=== PATIENT | male | born 1995 | race African-American/Black ===

== ENCOUNTER 2017-10-21 08:55 | Emergency (ER) | payer BC, OTHER ==
[2017-10-21 09:04] VITALS: BP 111/66
--- NOTE | 2017-10-21 09:23 | UC ---
General HPI - HPI Summary HPI Summary: Patient presents with complaints of dental pain and facial swelling on left upper side. He is able to eat, drink and handle his own secretions. He denies any difficulty breathing. - History of Current Complaint Chief Complaint: UCDentalProblem Stated Complaint: DENTAL PAIN Time Seen by Provider: 10/21/17 09:18 Hx Obtained From: Patient Onset/Duration: Gradual Onset, Lasting Days Timing: Constant Onset Severity: Moderate Current Severity: Severe Pain Intensity: 5 Associated Signs & Symptoms: Positive: Other Similar Episode/Dx as: dental abscess - Allergy/Home Medications Allergies/Adverse Reactions: Allergies Allergy/AdvReac Type Severity Reaction Status Date / Time No Known Allergies Allergy Verified 10/21/17 09:04 Home Medications: Home Medications Ibuprofen [Ibuprofen 200] 800 mg PO Q8HR PRN 10/21/17 [History Confirmed ] PMH/Surg Hx/FS Hx/Imm Hx Previously Healthy: Yes GI/ History: Other - Surgical History Surgical History: None - Family History Known Family History: Positive: None - Social History Occupation: Employed Full-time Lives: Alone Alcohol Use: Occasionally Substance Use Type: Marijuana Substance Use Comment - Amount & Last Used: daily Smoking Status (MU): Light Every Day Tobacco Smoker Type: Cigarettes Amount Used/How Often: 1/2PPD Review of Systems Constitutional: Negative Skin: Negative Eyes: Negative ENT: Negative, Other Respiratory: Negative Cardiovascular: Negative Gastrointestinal: Negative Genitourinary: Negative Motor: Negative Is Patient Immunocompromised?: No All Other Systems Reviewed And Are Negative: Yes Physical Exam Triage Information Reviewed: Yes Appearance: Well-Appearing Vital Signs: Initial Vital Signs Temp 98.8 F 10/21/17 08:57 Pulse 78 10/21/17 08:57 Resp 14 10/21/17 08:57 BP 111/66 10/21/17 08:57 Pulse Ox 97 10/21/17 08:57 Eye Exam: Normal ENT Exam: Normal Dental Exam: Normal Neck exam: Normal Neck: Positive: 1 Respiratory Exam: Normal Cardiovascular Exam: Normal Abdominal Exam: Normal Musculoskeletal Exam: Normal Neurological Exam: Normal Psychological Exam: Normal Skin Exam: Normal Course/Dx - Course Course Of Treatment: Patient presents with dental abscess. He was RX Amoxicillin 500 mg by mouth three times daily for 10 days. He has an appointment scheduled for Saturday of this week. Pain addressed with Ibuprofen. - Differential Dx - Multi-Symptom Differential Diagnoses: Other - dental abscess toothache Provider Diagnoses: dental abscess. toothache Discharge - Discharge Plan Condition: Stable Disposition: HOME Prescriptions: Amoxicillin PO (*) [Amoxicillin 500 MG CAP*] 500 mg PO TID #30 cap Patient Education Materials: Dental Abscess (ED) Referrals: Luis Arguello MD [Primary Care Provider] - Additional Instructions: Patient to follow up with his dentist as scheduled on Saturday.
--- NOTE | 2017-10-21 09:52 | UC ---
Dental HPI - HPI Summary HPI Summary: Patient presents with an unremarkable past medical history. He presents with two day onset complaints of dental pain of the left upper area, and facial swelling that developed yesterday. He states he has some pain in the area of the swelling. He reports he is able to eat, drink, swallow, without any difficulty. He states he has a bad tooth and does have a dental appointment scheduled for Saturday of this week. - History of Current Complaint Chief Complaint: UCDentalProblem Stated Complaint: DENTAL PAIN Time Seen by Provider: 10/21/17 09:18 Hx Obtained From: Patient Onset/Duration: Gradual Onset, Lasting Days Severity: Moderate Pain Intensity: 5 Aggravating Factor(s): Heat, Cold Alleviating Factor(s): OTC Meds Related History: Swelling - Allergies/Home Medications Allergies/Adverse Reactions: Allergies Allergy/AdvReac Type Severity Reaction Status Date / Time No Known Allergies Allergy Verified 10/21/17 09:04 Home Medications: Home Medications Ibuprofen [Ibuprofen 200] 800 mg PO Q8HR PRN 10/21/17 [History Confirmed ] PMH/Surg Hx/FS Hx/Imm Hx Previously Healthy: Yes - Surgical History Surgical History: None - Family History Known Family History: Positive: None - Social History Occupation: Employed Full-time Lives: Alone Alcohol Use: Occasionally Substance Use Type: Marijuana Substance Use Comment - Amount & Last Used: daily Smoking Status (MU): Light Every Day Tobacco Smoker Type: Cigarettes Amount Used/How Often: 1/2PPD Review of Systems Constitutional: Negative Skin: Negative Eyes: Negative ENT: Negative, Other - left upper dental cavity, with pain and facial swelling. Respiratory: Negative Cardiovascular: Negative Gastrointestinal: Negative Genitourinary: Negative Motor: Negative Neurovascular: Negative Musculoskeletal: Negative Neurological: Negative Psychological: Negative Is Patient Immunocompromised?: No All Other Systems Reviewed And Are Negative: Yes Physical Exam Triage Information Reviewed: Yes Appearance: Well-Appearing Vital Signs: Initial Vital Signs Temp 98.8 F 10/21/17 08:57 Pulse 78 10/21/17 08:57 Resp 14 10/21/17 08:57 BP 111/66 10/21/17 08:57 Pulse Ox 97 10/21/17 08:57 Eye Exam: Normal ENT Exam: Normal ENT: Positive: Other - left upper dentician appear to be in good repair, with no obvious cavity, flucuance, or induration. tenderness on palpation of the left cheek with soft tissue swelling. Dental: Positive: Percussion Tenderness @ - left cheek Neck exam: Other - left upper dentician appear to be in good repair, with no obvious cavity, flucuance, or induration. tenderness on palpation of the left cheek with soft tissue swelling. Respiratory: Positive: Lungs clear, Normal breath sounds, No respiratory distress Cardiovascular Exam: Normal Abdominal Exam: Normal Dental Complaint Course/Dx - Differential Dx/Diagnosis Differential Diagnosis/Dx: Dental Abscess Provider Diagnoses: dental abscess Discharge - Discharge Plan Condition: Stable Disposition: HOME Prescriptions: Amoxicillin PO (*) [Amoxicillin 500 MG CAP*] 500 mg PO TID #30 cap Patient Education Materials: Dental Abscess (ED) Referrals: Luis Arguello MD [Primary Care Provider] - Additional Instructions: Patient to follow up with his dentist as scheduled on Saturday.
== END 2017-10-21 09:45 | disposition home or self-care (01) ==
LOC: UCEAST 08:55
DX: K04.7 Periapical abscess without sinus (principal); F12.90 Cannabis use, unspecified, uncomplicated; F17.210 Nicotine dependence, cigarettes, uncomplicated
CPT/HCPCS: 99202; G0463

== ENCOUNTER 2018-01-18 15:17 | Emergency (ER) | payer BC, OTHER ==
[2018-01-18] MEDS ORDERED: Penicillin VK TAB* 250 MG PO ONE (17:40)
[2018-01-18] MEDS ORDERED: Ketorolac INJ* 30 MG/ML 1 ML VIAL IM ONE (17:40)
--- NOTE | 2018-01-18 17:41 | ED ---
Throat Pain/Nasal Congestion - HPI Summary HPI Summary: 22-year-old male presents with dental pain for the past 2 days. He states it is similar to previous dental infection. He denies any fevers. Admits to chills. He is still able to eat and drink with his pain. His pain is on his left upper chest. He denies any pain or swelling around his eyes. He denies any chest pain or shortness of breath. He has no medical conditions. He took some ibuprofen at 5 AM this morning. He states he is in excruciating pain. - History of Current Complaint Chief Complaint: EDDentalPain Time Seen by Provider: 01/18/18 17:30 - Allergies/Home Medications Allergies/Adverse Reactions: Allergies Allergy/AdvReac Type Severity Reaction Status Date / Time No Known Allergies Allergy Verified 01/18/18 15:31 Home Medications: Home Medications Ibuprofen TAB* [Advil TAB*] 800 mg PO Q8H PRN 01/18/18 [History Confirmed ] PMH/Surg Hx/FS Hx/Imm Hx Endocrine/Hematology History: Denies: Hx Anticoagulant Therapy Cardiovascular History: Denies: Hx Hypertension Infectious Disease History: No Infectious Disease History: Denies: Traveled Outside the [place] in Last 30 Days - Family History Known Family History: Positive: None - Social History Alcohol Use: Occasionally Substance Use Type: Reports: Marijuana Substance Use Comment - Amount & Last Used: daily Smoking Status (MU): Light Every Day Tobacco Smoker Type: Cigarettes Amount Used/How Often: 1/2PPD Review of Systems Positive: Chills. Negative: Fever Positive: Dental Pain Negative: Chest Pain Negative: Shortness Of Breath All Other Systems Reviewed And Are Negative: Yes Physical Exam Triage Information Reviewed: Yes Vital Signs On Initial Exam: Initial Vitals Temp Pulse Resp BP Pulse Ox 98.2 F 73 18 158/95 98 01/18/18 15:24 01/18/18 15:24 01/18/18 15:24 01/18/18 15:24 01/18/18 15:24 Vital Signs Reviewed: Yes Appearance: Positive: Well-Appearing Skin: Positive: Warm, Dry Head/Face: Positive: Normal Head/Face Inspection Eyes: Positive: Normal, EOMI, SARAH, Conjunctiva Clear ENT: Positive: Normal ENT inspection, Pharynx normal, TMs normal Dental: Positive: Percussion Tenderness @ - 13. Negative: Abscess @ Neck: Positive: Supple, Nontender, No Lymphadenopathy Respiratory/Lung Sounds: Positive: Clear to Auscultation, Breath Sounds Present Cardiovascular: Positive: Normal, RRR Musculoskeletal: Positive: Normal Neurological: Positive: Normal Psychiatric: Positive: Normal Diagnostics - Vital Signs Vital Signs Temp Pulse Resp BP Pulse Ox 01/18/18 15:24 98.2 F 73 18 158/95 98 - Laboratory Lab Statement: Any lab studies that have been ordered have been reviewed, and results considered in the medical decision making process. EENT Course/Dx - Course Course Of Treatment: 22-year-old male presents with dental pain for the past 2 days. He states it is similar to previous dental infection. He denies any fevers. Admits to chills. He is still able to eat and drink with his pain. His pain is on his left upper chest. He denies any pain or swelling around his eyes. He denies any chest pain or shortness of breath. He has no medical conditions. He took some ibuprofen at 5 AM this morning. He states he is in excruciating pain. pain at tooth 13. No abscess felt. will treat with PCN. will have establish care with primary as blood pressue is elevated at this visit. Patient understands and agrees with plan. - Differential Diagnoses Differential Diagnoses: Dental Abscess, Dental Caries, Fractured Tooth - Diagnoses Provider Diagnoses: Dental infection, Elevated blood pressure reading Discharge - Sign-Out/Discharge Documenting (check all that apply): Discharge/Admit/Transfer - Discharge Plan Condition: Good Disposition: HOME Prescriptions: Penicillin VK TAB* [Penicillin VK 250 mg Tab*] 500 mg PO QID #27 tab Patient Education Materials: Toothache (ED) Referrals: [facility] [Outside] Additional Instructions: Take antibiotics: 4 times a day for 7 days, first dose given in ED Use ibuprofen or Tylenol every 6 hours Avoid hard, crunchy food until seen by dentist Follow up with dentist as soon as possible Return to ED if develop fever, shortness of breath, pain with eye movement or swelling around eye Establish care with primary care physician - Billing Disposition and Condition Condition: GOOD Disposition: HOME Images - Images Dental: 1 - pain
[2018-01-18 18:25] VITALS: BP 147/91
== END 2018-01-18 18:09 | disposition home or self-care (01) ==
LOC: ED 15:17
DX: K04.7 Periapical abscess without sinus (principal); R03.0 Elevated blood-pressure reading, without diagnosis of hypertension; R07.89 Other chest pain; F17.210 Nicotine dependence, cigarettes, uncomplicated
CPT/HCPCS: 96372; 99282; A9270-GY; J1885